=== PATIENT | male | born 1930 | race Caucasian/White ===

== ENCOUNTER 2018-06-10 12:58 | Emergency (ER) | payer OTHER ==
[~2018-06-10] VITALS: Ht 177.8 cm; Wt 81.8 kg
--- NOTE | 2018-06-10 13:12 | NUR ---
AAOX3, BIBRA FROM HOME C/O CONSTIPATION AND WEAKNESS SINCE THIS MORNING. SKIN IS WARM AND DRY. RESP IS EVEN AND UNLABORED WITH NAD NOTED. PLACED ON THE MONITOR. DR CHAHAL AT BS FOR EVAL.
[2018-06-10] MEDS ORDERED: IV NS 0.9% 1,000 ML BAG IV ONE ×2 (13:30→14:00)
[2018-06-10 13:39] LABS: CALCIUM, SERUM 8.9 mg/dL (8.5-10.1); CARBON DIOXIDE 30 mmol/L (21-32); CHLORIDE 97 mmol/L (98-107); CREATININE 1.2 mg/dL (0.6-1.3); GLUCOSE 127 mg/dL (74-106); POTASSIUM 3.3 mmol/L (3.5-5.1); SODIUM SERUM 133 mmol/L (136-145); UREA NITROGEN, BLOOD 6 mg/dL (7-18)
[2018-06-10 13:47] LABS: TROPONIN I < 0.017 ng/mL (0.00-0.056)
[2018-06-10 13:53] LABS: ALANINE AMINOTRANSFERASE 25 U/L (12-78); ALBUMIN 3.5 g/dL (3.4-5.0); ALKALINE PHOSPHATASE 61 U/L (46-116); ASPARTATE AMINOTRANSFERASE 16 U/L (15-37); BILIRUBIN,DIRECT 0.2 mg/dL (0.0-0.2); BILIRUBIN,TOTAL 0.9 mg/dL (0.2-1.0); THYROID STIMULATING HORMONE 0.238 uIU/mL (0.358-3.74)
[2018-06-10 13:57] LABS: HEMOGLOBIN 15.4 g/dL (13.5-17.5); RED BLOOD CELL COUNT(AUTO) 4.83 MIL/uL (4.5-6.0); WHITE BLOOD COUNT (AUTO) 15.8 K/uL (4.3-11.0)
[2018-06-10 13:58] LABS: HEMATOCRIT 45 % (39-51); MEAN CORPUSCULAR HEMOGLOBIN 32 PG (26.0-33.0); MEAN CORPUSCULAR HGB CONC 34 g/dl (31.0-36.0); MEAN CORPUSCULAR VOLUME 94 fL (80-96); NEUTROPHILS % (AUTO) 82.8 % (43.0-81.0); PLATELET COUNT (AUTO) 188 /CMM (150-450); RDW COEFFICIENT OF VARIATION 14.4 (11.5-15.0)
[2018-06-10 13:59] LABS: BASOPHILS % (AUTO) 0.6 % (0.0-2.0); EOSINOPHILS % (AUTO) 0.5 % (0.0-6.0); LYMPHOCYTES % (AUTO) 9.6 % (20.0-44.0); MONOCYTES % (AUTO) 6.5 % (2.0-12.0)
--- NOTE | 2018-06-10 14:12 | NUR ---
CALLED TESHA NOLASCO
[2018-06-10] MEDS ORDERED: CEFEPIME 1 GM in IV D5W 50 ML IV ONE (14:30)
[2018-06-10] MEDS ORDERED: VANCOMYCIN 1 GM in IV D5W 250 ML IV ONE (14:30)
[2018-06-10 14:34] LABS: APPEARANCE,URINE Clear (CLEAR); BILIRUBIN,URINE Negative (NEGATIVE); BLOOD, URINE Trace-intact Ery/uL (NEGATIVE); COLOR,URINE Yellow (YELLOW); KETONES,URINE Negative (NEGATIVE); LEUKOCYTE ESTERASE ,URINE Negative (NEGATIVE); NITRITE, URINE Negative (NEGATIVE); PH,URINE 7.5 (5.0-8.0); PROTEIN,URINE Negative (NEGATIVE); UGLUCOSE Negative (NEGATIVE); UROBILINOGEN,URINE 0.2 EU/dL (0.2)
--- NOTE | 2018-06-10 14:39 | NUR ---
DR CHAHAL ON WANTS A TOTAL OF 2460ML OF IV NS ONLY.
[2018-06-10 14:50] LABS: BACTERIA,URINE Rare /HPF (None Seen); RBC,URINE 0-2 /HPF (0-2); SQUAMOUS EPITHELIAL CELL,UR Few /HPF (None Seen); WBC,URINE 0-2 /HPF (0-3)
--- NOTE | 2018-06-10 15:00 | NUR ---
DR RG AT BS FOR AN UPDATE AND EVAL.
--- NOTE | 2018-06-10 15:04 | NUR ---
CALLED [facility] AND SPOKE TO CASUALTY CLAIM ADJUSTERTerry RANKIN FOR MD TO CALL. AWAITING CALL BACK.
--- NOTE | 2018-06-10 15:44 | NUR ---
RECEIVED A CALL FROM [facility] AND SPOKE TO JONEL BARBA. PT HAS BEEN ACCEPTED AND WILL BE GOING TO [facility] ED. DR MARIO THOMPSON IS THE ACCEPTING MD. NUMBER FOR REPORT IS [phone] ALS TRANSPORT WILL ARRIVE TO REST ROOM MATRON THE PT AT [phone]
[2018-06-10] MEDS ORDERED: hydrALAZINE HCL IV 20 MG VIAL ONE ×2 (16:04→16:26)
[2018-06-10 16:09] VITALS: BP 192/137
[2018-06-10] MEDS ORDERED: hydrALAZINE HCL IV 20 MG VIAL IV ONE (16:30)
--- NOTE | 2018-06-10 16:36 | NUR ---
REPORT GIVEN TO DARIAN CORNELIUS FOR SORAYA GOING TO [facility].
== END 2018-06-10 17:00 | disposition short-term general hospital (02) ==
LOC: ER 13:00
DX: E86.0 Dehydration (principal); D72.828 Other elevated white blood cell count; E87.2 Acidosis; R10.84 Generalized abdominal pain; G30.8 Other Alzheimer's disease; F02.80 Dementia in other diseases classified elsewhere, unspecified severity, without behavioral disturbance, psychotic disturbance, mood disturbance, and anxiety
CPT/HCPCS: 36415; 70450; 71045; 74176; 80048; 80076; 81001; 83605 ×2; 84443; 84484; 85025; 85730; 87040 ×2; 87086; 93005; 96361; 96365; 96367; 96375; 99285; A4606; J0360 ×2; J0692; J3370; J7030 ×2; J7040; J7060 ×2; 81000-TC; Z7610